=== PATIENT | male | born 1975 | race Caucasian/White ===

== ENCOUNTER 2023-10-01 09:50 | Observation (INO) | payer OTHER, SELFPAY ==
[2023-10-01] VITALS (14 sets, daily range): BP systolic 151–170; BP diastolic 90–114; PULSE 96–120; RESP 13–22; TEMP 37–37.2; O2SAT 92–98
--- NOTE | ~2023-10-01 | CT_ITS ---
CT of the Abdomen and Pelvis: Indication: Abdominal pain Technique: 2.5 mm axial scans were obtained through the abdomen and pelvis following intravenous adm inistration of 100 cc of Omnipaque 350. Dose reduction technique was used on this scan by utilizing a utomated exposure control and iterative reconstruction technique. The dose-length product (DLP) was 1 767.22 mGy-cm. Findings: Scans through the lung bases are unremarkable. There is diffuse hepatic steatosis. The spleen, pancreas, gallbladder, left adrenal gland, and kidney s are within normal limits. There is a 2 cm indeterminate right adrenal nodule. There are atheroscler otic calcifications of the aorta. No lymphadenopathy. Appendix is dilated to 9 mm small amount of periappendiceal/right lower quadrant fluid/inflammatory c hange. No abscess or free air evident. Images through the pelvis were performed. Urinary bladder unremarkable. No pelvic mass seen. No ascit es. Bilateral L5 pars interarticularis defects are present. Impression: Findings consistent with early/mild acute appendicitis, as above. No abscess or free air. 2 cm indeterminate right adrenal nodule. Follow-up nonemergent MR should be considered to attempt to confirm benign adenoma. Diffuse hepatic stenosis. Reviewed, dictated and finalized at [facility]. Impression: Findings consistent with early/mild acute appendicitis, as above. No abscess or free air. 2 cm indeterminate right adrenal nodule. Follow-up nonemergent MR should be con sidered to attempt to confirm benign adenoma. Diffuse hepatic stenosis.
[2023-10-01 10:09] LABS: Basophils Absolute Auto 0.1 K/mm3 (0.0-0.1); Basophils Percent Auto 0.5 % (0.2-1.2); Eosinophils Percent Auto 0.4 % (0-4.4); Hematocrit 44.9 % (42.0-52.0); Immature Granulocyte Absolute 0.07 K/mm3 (0.00-0.031); Immature Granulocyte Percent A 0.7 % (0-0.5); Lymphocytes Absolute Auto 1.65 K/mm3 (0.9-3.2); Lymphocytes Percent Auto 15.9 % (18.3-44.2); Mean Corpuscular HGB Conc 33.4 g/dl (32-36); Mean Corpuscular Hemoglobin 30.7 pg (26-34); Mean Platelet Volume 8.6 fl (7.4-10.4); Monocytes Absolute Auto 0.9 K/mm3 (0.1-0.6); Neutrophils Absolute Auto 7.6 K/mm3 (1.3-6.7); Neutrophils Percent Auto 73.5 % (45.5-73.1); Platelet Count Result 318 k/mm3 (150-375); Red Blood Count 4.88 M/mm3 (4.6-6.20); Red Cell Distribution Width 14.6 % (11.5-14.5); White Blood Count 10.4 K/mm3 (4.5-10.0)
[2023-10-01 10:24] LABS: Alanine Aminotransferase 32 U/L (6-50); Albumin Level 4.8 g/dL (3.5-5.1); Alkaline Phosphatase 91 U/L (38-126); Anion Gap 8 mmol/L (4-12); Aspartate Amino Transferase 45 U/L (17-59); Blood Urea Nitrogen 9 mg/dL (9-20); Calcium 10.1 mg/dL (8.4-10.2); Carbon Dioxide 28 mmol/L (22-30); Chloride 97 mmol/L (98-107); Estimated CRCL calculation 139 ml/min; Estimated Glomerular Filt Rate > 60; Glucose 128 mg/dL (65-110); Lipase 74 U/L (23-300); Potassium 3.7 mmol/L (3.4-5.0); Sodium 133 mmol/L (137-145)
[2023-10-01] MEDS: SODIUM CHLORIDE 0.9% IV 1,000 ML 999 ML IV CONT (10:41)
[2023-10-01] MEDS: ONDANSETRON INJ 4 MG/2 ML VIAL IV PUSH (10:42)
[2023-10-01] MEDS: MORPHINE SULFATE (*CRX) 4 MG/ML INJ IV PUSH (10:42)
[2023-10-01 11:46] LABS: Appearance Urine Clear (Clear); Bacteria Urine None Seen /hpf; Bilirubin Urine Negative (Negative); Blood Urine Negative (Negative); Color Urine Yellow (Yellow); Glucose Urine UA Negative (Negative); Ketones Urine Trace mg/dL (Negative); Leukocyte Esterase Ur Negative LEU/UL (Negative); Nitrate Urine Negative (Negative); Non Pathogenic Casts 0-2; Protein Urine Trace mg/dL (Negative); RBC Urine 0-2 /hpf (0-2); Squamous Epithelial Cell Urine None Seen /hpf (Few); Urobilinogen Urine 0.2 mg/dL (<2.0); WBC Urine 0-5 /hpf (0-3); pH Urine 6.5 (5.0-9.0)
[2023-10-01 11:55] LABS: Specific Grav Ur 1.068 (1.001-1.035)
[2023-10-01] MEDS: HYDROmorphone HCL INJ (*CRX) 1 MG/ML SYR IV PUSH (11:55)
[2023-10-01 11:56] LABS: Add Urine Microscopic? YES
[2023-10-01] MEDS: metroNIDAZOLE 500 MG/ISO 100ML 500 MG/100 ML BAG 100 MG IVPB ×2 (12:23→21:09)
--- NOTE | 2023-10-01 12:45 | ED.GENADULT ---
HPI - General Adult General Chief complaint: Abdominal Pain Stated complaint: lower abd pain Time Seen by Provider: 10/01/23 09:56 History of Present Illness HPI narrative: Patient is a 48-year-old male who presents ER with right lower quadrant abdominal pain. Ongoing for 24 hours. Worse with any physical movement. Has had the feeling that he needs to have bowel movement but cannot. No fevers or chills or sweats. No vomiting. He does still have an appendix. No urinary frequency urgency or dysuria. Related Data Home Medications Medication Instructions Recorded Confirmed levothyroxine 88 mcg tablet mcg 10/01/23 losartan 100 tablet 10/01/23 10/01/23 mg-hydrochlorothiazide 25 mg tablet Allergies Allergy/AdvReac Type Severity Reaction Status Date / Time No Known Allergies Allergy Verified 10/01/23 10:00 Review of Systems Review of Systems: All systems reviewed & are unremarkable except as noted in HPI and below Constitutional: Constitutional: Reports no additional constitutional complaints ENT: Reports system reviewed and no additional complaints, except as documented Cardiovascular: Cardiovascular: Reports no additional cardiovascular complaints Respiratory: Respiratory: Reports no additional respiratory complaints Gastrointestinal: Gastrointestinal: Reports abdominal pain, Denies diarrhea, Denies nausea and Denies vomiting PMFSH Past Medical History Medical History Hypertension Hypothyroidism Family History Family History Father Carcinoma of colon Exam Narrative: GENERAL: Well-appearing, obese, and in no acute distress. HEAD: Normocephalic, atraumatic. ENT: Mucous membranes moist. NECK: Supple. CHEST: Clear to auscultation. No respiratory distress. HEART: Regular rate and rhythm. Normal peripheral pulses. ABDOMEN: Soft, Tender palpation right lower quadrant with guarding, nondistended. EXTREMITIES: Normal range of motion. No edema. SKIN: Warm, dry, no rash. NEURO: Alert and oriented x3. PSYCH: Normal mood and affect. Course Course Emergency Course: patient accepted by General surgery to go to the OR. Patient has been started on IV antibiotics. Vital Signs Vital signs: Vital Signs Temperature 98.8 F 10/01/23 09:58 Pulse Rate 117 H 10/01/23 09:58 Respiratory Rate 16 10/01/23 09:58 Blood Pressure 168/101 H 10/01/23 09:58 Pulse Oximetry 98 10/01/23 09:58 Oxygen Delivery Room Air 10/01/23 09:58 Temperature 98.6 F 10/01/23 13:45 Pulse Rate 102 H 10/01/23 18:23 Respiratory Rate 14 10/01/23 13:45 Blood Pressure 156/90 H 10/01/23 13:45 Pulse Oximetry 95 10/01/23 18:23 Oxygen Delivery Nasal Cannula 10/01/23 18:23 Oxygen Flow Rate 2 10/01/23 18:23 Medical Decision Making Vital Signs Vital Signs: Vital Signs Temperature 98.8 F 10/01/23 09:58 Pulse Rate 117 H 10/01/23 09:58 Respiratory Rate 16 10/01/23 09:58 Blood Pressure 168/101 H 10/01/23 09:58 Pulse Oximetry 98 10/01/23 09:58 Oxygen Delivery Room Air 10/01/23 09:58 Temperature 98.6 F 10/01/23 13:45 Pulse Rate 102 H 10/01/23 18:23 Respiratory Rate 14 10/01/23 13:45 Blood Pressure 156/90 H 10/01/23 13:45 Pulse Oximetry 95 10/01/23 18:23 Oxygen Delivery Nasal Cannula 10/01/23 18:23 Oxygen Flow Rate 2 10/01/23 18:23 Lab Data 10/01/23 10:02 10/01/23 10:02 Labs: Lab Results 10/01/23 10/01/23 Range/Units 10:02 11:37 WBC 10.4 H (4.5-10.0) K/mm3 RBC 4.88 (4.6-6.20) M/mm3 Hgb 15.0 (14.0-18.0) g/dL Hct 44.9 (42.0-52.0) % MCV 92.0 (80-100) fl MCH 30.7 (26-34) pg MCHC 33.4 (32-36) g/dl RDW 14.6 H (11.5-14.5) % Plt Count 318 (150-375) k/mm3 MPV 8.6 (7.4-10.4) fl Immature Gran % (Auto) 0.7 H (0-0.5) % Neut % (Auto) 73.5 H (45.5-73.
--- NOTE | 2023-10-01 13:16 | PM.HPGS ---
History of Present Illness History of Present Illness Consent: Risks, benefits, and alternatives have been discussed and questions answered. Patient agrees to proceed with procedure. Chief complaint: lower abd pain Narrative: Sheldon Fine is a 48 year old male who presented to the ER with RLQ abdominal pain x 12 hours. He first noticed pain around 11 pm last night. He developed nausea and vomiting. His pain progressed through the night and he came into the ER for evaluation. Workup shows mild leukocytosis and CT evidence of possible early/mild acute appendicitis. No perforation or abscess. Our service was consulted by ED provider and he is now seen in the ER. No history of abdominal surgery. No previous colonoscopy. Review of Systems Review of Systems: All systems reviewed & are unremarkable except as noted in HPI and below PMFSH Past Medical History Medical History Hypertension Hypothyroidism Family History Family History Father Carcinoma of colon Meds Home Medications and Allergies Home Medications Medication Instructions Recorded Confirmed Type levothyroxine 88 mcg tablet mcg 10/01/23 History losartan 100 tablet 10/01/23 10/01/23 History mg-hydrochlorothiazide 25 mg tablet Allergies Allergy/AdvReac Type Severity Reaction Status Date / Time No Known Allergies Allergy Verified 10/01/23 10:00 Vital Signs Vital Signs - 24 hr 10/01/23 09:58 10/01/23 12:07 Temperature 98.8 F Pulse Rate 117 H 96 Respiratory Rate 16 16 Blood Pressure 168/101 H 151/94 H Pulse Oximetry 98 95 Oxygen Delivery Room Air Exam Const: General: comfortable and no acute distress Nutritional Appearance: obese Orientation/consciousness: patient oriented x3 HENMT: Head: normocephalic and atraumatic Ears: hearing grossly normal bilaterally Eyes: General: appearance normal, both eyes and all related structures Pupils: Equal, round and reactive pupils present Neck: Neck: normal visual inspection and full ROM Resp: Effort & Inspection: no respiratory distress Auscultation: clear to auscultation bilaterally Cardio: Rate: regular rate Rhythm: regular rhythm Heart sounds: S1 normal heart sound present and S2 normal heart sound present Peripheral pulses: Peripheral pulses 2+ throughout GI: Inspection: non-distended and obesity GI Palp: Yes Soft to palpation, Yes Tenderness to palpation present (GI) (mild diffuse TTP but focal tenderness in RLQ), Yes Guarding due to palpation present (GI) (RLQ), Yes No hepatosplenomegaly present and Yes Hernia present umbilical (tender but reducible) Percussion: Yes normal to percussion Auscultation: normal bowel sounds Skin: General skin exam: normal color Neuro: General: moves all extremities and no focal motor deficits Speech: normal speech Motor exam (neuro): 5/5 motor strength present throughout Extrem: General: normal to inspection and no edema Psych: Mental Status: mental status grossly normal Attitude: cooperative Insight: Good insight present (Psych) Judgement: Good judgement present (Psych) Results Results Additional studies: ITS Impressions Abdomen/Pelvis CT 10/01/23 11:14 Impression: Findings consistent with early/mild acute appendicitis, as above. No abscess or free air. 2 cm indeterminate right adrenal nodule. Follow-up nonemergent MR should be considered to attempt to confirm benign adenoma. Diffuse hepatic stenosis. Assessment and Plan Assessment and plan (1) Acute appendicitis: Code(s): K35.80 - Unspecified acute appendicitis Status: Acute Assessment and Plan: CT scan reviewed and discussed with the patient. There is evidence of acute appendicitis. No perforation or abscess evident on CT. Dr. Clemons discussed treatment options with the patient and recommended proceeding with laparoscopic robbie
[2023-10-01] MEDS: LACTATED RINGERS 1,000 ML 30 ML IV CONT ×2 (13:30→21:23)
[2023-10-01] MEDS: HYDROmorphone HCL INJ (*CRX) 1 MG/ML SYR 0.25 MG IV PUSH ×6 (13:40→19:04)
--- NOTE | 2023-10-01 14:54 | SUR.PREOP ---
1454- Patient and Alina aware procedure start time will be delayed. Patient reporting improvement with pain after IV pain medication dilaudid. Denying needs at this time.
--- NOTE | 2023-10-01 18:03 | WPDHPUPDATE1 ---
History and Physical Update Update Date/Time: 10/01/23 18:03 History and Physical has been reviewed, including an updated exam of the patient. There are NO changes in the patient's condition. Risks, benefits, and alternatives have been discussed and questions answered. Patient agrees to proceed with procedure.
--- NOTE | 2023-10-01 19:34 | WPDANESEPPF ---
Anes - Initial Pre Proc Eval Procedure: Operation Date: 10/01/23 15:00 Proposed Procedures p Laparoscopic Appendectomy - Tamela See MD Date/Time: 10/01/23 19:34 Surgeon: Tamela See MD Pre Op Diagnosis: lower abd pain Patient Data Age: 48 Gender: M Height: 1.83 m Weight: 135.5 kg Last Vital Signs Temp 37.0 C 10/01/23 13:45 Pulse 100 10/01/23 19:04 Resp 14 10/01/23 13:45 BP 156/90 H 10/01/23 13:45 Pulse Ox 97 10/01/23 19:04 O2 Del Method Nasal Cannula 10/01/23 19:04 O2 Flow Rate 2 10/01/23 19:04 Allergies Allergy/AdvReac Type Severity Reaction Status Date / Time No Known Allergies Allergy Verified 10/01/23 10:00 Home Medications Medication Instructions Recorded Confirmed Type levothyroxine 88 mcg tablet mcg 10/01/23 History losartan 100 tablet 10/01/23 10/01/23 History mg-hydrochlorothiazide 25 mg tablet Laboratory Tests 10/01/23 10/01/23 10:02 11:37 WBC 10.4 H K/mm3 (4.5-10.0) RBC 4.88 M/mm3 (4.6-6.20) Hgb 15.0 g/dL (14.0-18.0) Hct 44.9 % (42.0-52.0) MCV 92.0 fl (80-100) MCH 30.7 pg (26-34) MCHC 33.4 g/dl (32-36) RDW 14.6 H % (11.5-14.5) Plt Count 318 k/mm3 (150-375) MPV 8.6 fl (7.4-10.4) Immature Gran % (Auto) 0.7 H % (0-0.5) Neut % (Auto) 73.5 H % (45.5-73.1) Lymph % (Auto) 15.9 L % (18.3-44.2) [place] % (Auto) 9.0 H % (2.6-8.5) Eos % (Auto) 0.4 % (0-4.4) Baso % (Auto) 0.5 % (0.2-1.2) Lymph # (Auto) 1.65 K/mm3 (0.9-3.2) [place] # (Auto) 0.9 H K/mm3 (0.1-0.6) Eos # (Auto) 0.0 K/mm3 (0-0.3) Baso # (Auto) 0.1 K/mm3 (0.0-0.1) Abs Immat Gran (auto) 0.07 H K/mm3 (0.00-0.031) Absolute Neuts (auto) 7.6 H K/mm3 (1.3-6.7) Absolute Nucleated RBC 0.000 K/mm3 (0.0-0.012) Nucleated RBC % 0.0 % (0.0-0.2) Sodium 133 L mmol/L (137-145) Potassium 3.7 mmol/L (3.4-5.0) Chloride 97 L mmol/L (98-107) Carbon Dioxide 28 mmol/L (22-30) Anion Gap 8 mmol/L (4-12) BUN 9 mg/dL (9-20) Creatinine 0.80 mg/dL (0.7-1.3) Estim Creat Clear Calc 139 ml/min Estimated GFR > 60 (59 - ) Glucose 128 H mg/dL (65-110) Calcium 10.1 mg/dL (8.4-10.2) Total Bilirubin 1.0 mg/dL (0.2-1.3) AST 45 U/L (17-59) ALT 32 U/L (6-50) Alkaline Phosphatase 91 U/L (38-126) Total Protein 8.0 g/dL (6.3-8.2) Albumin 4.8 g/dL (3.5-5.1) Lipase 74 U/L (23-300) Urine Color Yellow (Yellow) Urine Appearance Clear (Clear) Urine pH 6.5 (5.0-9.0) Ur Specific [place] 1.068 H (1.001-1.035) Urine Protein Trace mg/dL (Negative) Urine Glucose (UA) Negative mg/dL (Negative) Urine Ketones Trace H mg/dL (Negative) Ur Blood (Man) Negative (Negative) Urine Nitrate Negative (Negative) Urine Bilirubin Negative (Negative) Urine Urobilinogen 0.2 mg/dL (<2.0) Leukocyte Esterase Rfl Negative JACKIE/UL (Negative) Urine RBC 0-2 /hpf (0-2) Urine WBC 0-5 /hpf (0-3) Ur Squamous Epith Cells None seen /hpf (Few) Urine Bacteria None seen /hpf Urine Casts 0-2 Patient hx anesthesia problems: none Family hx anesthesia problems: none Results Review: All pre-operative results and documents have been reviewed as part of the pre-operative evaluation. PMFSH Past Medical History Medical History Hypertension Hypothyroidism Family History Family History Father Carcinoma of colon Anes - Eval Final PreProcedure Day of Procedure 10/01/23 19:34 Patient weight: morbidly obese Heart: regular rate
[2023-10-01] MEDS: LIDO 1%/EPINEPHRINE 1:100,000 20 ML VIAL 30 ML INFILTRATE (20:21)
[2023-10-01] MEDS: BUPivacaine HCL 0.5% 10 ML AMP 30 ML INFILTRATE (20:22)
--- NOTE | 2023-10-01 21:15 | W.PM.PROC2 ---
Procedure Note - Detailed Date of Procedure 10/01/23 Pre-op Diagnosis Acute appendicitis Post-op Diagnosis Same Procedure Performed Laparoscopic appendectomy Surgeon Andrea Yang MD Anesthesia General Indications Patient is a 48-year-old gentleman presented to the emergency room with complaints of lower abdominal pain. He had a leukocytosis and a CT scan abdomen pelvis showed acute appendicitis. He presents now for emergent laparoscopic appendectomy. Findings The appendix was acutely inflamed throughout its distal 2/3. No perforation of her presumed abscess was seen. It was quite a bit inflammation of the surrounding peritoneum in the right lower quadrant. Description of Procedure After informed consent was obtained patient brought to the operating room was placed supine position and general endotracheal anesthesia was administered. A Hall catheter was placed decompress the bladder and the abdomen was then prepped and draped usual sterile fashion. A time-out was then performed correctly identifying the patient as well as procedure to be performed. I then entered the abdomen in left upper quadrant utilizing a 5mm Optiview port. Once inside the abdomen I could see there is no adhesions around the umbilicus I placed a 12mm trocar port in the periumbilical position under direct visualization. I then placed a 5mm suprapubic trocar port and a 5mm right lower quadrant trocar port all under direct visualization. With the patient in the head-down Trendelenburg position and looked is the patient's left the bowel fell away from the right lower quadrant the abdomen I could see a acutely inflamed appendix in the right lower quadrant just inferior to the cecum. With blunt dissection with the tip of the irrigation device I was able to separate the appendix from the surrounding terminal ileum and peritoneum. I was then able to hold the appendix at the tip and evaluate and see that the proximal 1/3 the appendix was normal there was no inflammation of the base of the appendix. There is no perforation or periappendiceal abscess. I then made a defect through the mesentery at the base of the appendix with a [place] dissector. I then used a blue load to the 45mm Endo-MICHELLE stapler to divide the appendix flush with the cecum. A vascular reload to the Endo-MICHELLE stapler 45mm stapler was then used to divide the mesoappendix. The appendix was then placed into an Endo-Catch bag and brought out through the periumbilical trocar port site. It was passed off table sent to pathology for examination. I then irrigated out the right lower quadrant the abdomen the pelvis with copious amounts sterile saline solution. I felt there was no inflammation area that I wanted to leave a drain so a 15 [place] round Jose drain was placed into the abdomen through the suprapubic trocar port site. It was secured to the skin with a 3-0 nylon suture. The drain was then placed in the right lower quadrant the abdomen with the traversing the the base of the appendix staple line. I then irrigated the pelvis and right lower quadrant with about 1L of irrigation. I then proceeded to remove all the trocar ports under visualization all port sites appeared hemostatic. I then allowed the abdomen decompressed. The 12mm periumbilical trocar port fascial defect was then closed utilizing 0 Vicryl sutures to approximate the edges of the fascia. The skin edges at the port sites were then approximated utilizing a running subcuticular 4 Monocryl suture. The drain was placed to after a grenade bulb suction and a drain dressing was placed. Skin glue was applied all the port sites. The patient tolerated the procedure well no complications. All sponges, needles, and instrument counts were correct at the end procedure. EBL was _30__cc. The patient was awakened and taken to recovery in stable and satisfactory condition. Implants None Estimated Blood Loss 30 Drains Yes (15 [place] round Jose drain right lower quadrant)
[2023-10-01] MEDS: ERTAPENEM 1 GM/NS 50 ML 1 GM/50 ML BAG IVPB (21:42)
--- NOTE | 2023-10-01 22:23 | ADMGEN ---
This patient, Sheldon Fine, was admitted to Medical Room 261-01 @1975. Patient/family oriented to hospital policies and general routines including ID bracelet, bed and alarms, visiting hours, pain management, procedures, bathroom and other care routines, personal items, smoking policy, room service/diet, and visiting hours. Information on how to activate the Rapid Response Team has been discussed. Patient/Family are encouraged to report perceived risks to care and to ask questions if they do not understand what they are told or what they should do.
[2023-10-01] MEDS: LACTATED RINGERS 1,000 ML 125 ML IV CONT (23:05)
[2023-10-01] MEDS: oxyCODONE HCL (*CRX) 5 MG TAB IR PO (23:29)
[2023-10-02] VITALS (8 sets, daily range): BP systolic 153–168; BP diastolic 64–109; PULSE 91–106; RESP 16–24; TEMP 36.4–37.6; O2SAT 94–100
[2023-10-02] MEDS: oxyCODONE HCL (*CRX) 5 MG TAB IR PO ×3 (03:51→12:34)
[2023-10-02 05:34] LABS: Basophils Percent Auto 0.2 % (0.2-1.2); Hematocrit 38.8 % (42.0-52.0); Hemoglobin 12.8 g/dL (14.0-18.0); Immature Granulocyte Absolute 0.11 K/mm3 (0.00-0.031); Immature Granulocyte Percent A 0.6 % (0-0.5); Lymphocytes Absolute Auto 0.55 K/mm3 (0.9-3.2); Lymphocytes Percent Auto 3.1 % (18.3-44.2); Mean Corpuscular Hemoglobin 31.3 pg (26-34); Mean Corpuscular Volume 94.9 fl (80-100); Monocytes Absolute Auto 0.6 K/mm3 (0.1-0.6); Monocytes Percent Auto 3.4 % (2.6-8.5); Neutrophils Absolute Auto 16.5 K/mm3 (1.3-6.7); Neutrophils Percent Auto 92.7 % (45.5-73.1); Platelet Count Result 261 k/mm3 (150-375); Red Blood Count 4.09 M/mm3 (4.6-6.20); Red Cell Distribution Width 14.7 % (11.5-14.5); White Blood Count 17.8 K/mm3 (4.5-10.0)
[2023-10-02 05:56] LABS: Anion Gap 3 mmol/L (4-12); Blood Urea Nitrogen 9 mg/dL (9-20); Calcium 9.4 mg/dL (8.4-10.2); Carbon Dioxide 29 mmol/L (22-30); Chloride 101 mmol/L (98-107); Estimated CRCL calculation 139 ml/min; Estimated Glomerular Filt Rate > 60; Glucose 146 mg/dL (65-110); Sodium 133 mmol/L (137-145)
[2023-10-02 06:01] LABS: Hypochromasia 1+; Platelet Estimate Adequate (Adequate); Schistocytes None Seen; Stomatocytes 1+
[2023-10-02] MEDS: metroNIDAZOLE 500 MG/ISO 100ML 500 MG/100 ML BAG 100 MG IVPB (06:02)
[2023-10-02] MEDS: PANTOPRAZOLE 40 MG TABLET PO (08:10)
[2023-10-02] MEDS: LACTATED RINGERS 1,000 ML 125 ML IV CONT (08:11)
--- NOTE | 2023-10-02 09:15 | WPDPN ---
Progress Note: A&P Assessment and Plan (1) Acute appendicitis: Code(s): K35.80 - Unspecified acute appendicitis Status: Acute Assessment and Plan: Postop day 1 after laparoscopic appendectomy. Seems to be doing pretty well today. White blood count is elevated but is likely reactive to surgery. Would like to keep him on Invanz for another 24hours of IV antibiotics. We will go ahead and stop the Flagyl. Hopefully his white blood cell count trend down tomorrow and he can go home on oral antibiotics for another 7 to 10 days. Leave the drain in for today and likely remove tomorrow if he can go home tomorrow. Diet to be advanced later today. Continue to ambulate. Will at some Lovenox for DVT prophylaxis. Subjective Date/time seen: 10/02/23 09:15 Interval history: Patient is postoperative day 1 after laparoscopic appendectomy yesterday. He states that his pain is much better but is still having some mild soreness around his port sites. He is tolerating full liquid diet this morning on difficulty. He is not on any oxygen. His white blood cell count did increase to 17,800 after his surgery. This is likely reactive to surgery. No fever overnight. Remains on Invanz and Flagyl for IV antibiotics. He is able to ambulate without difficulty urinate without difficulty. Exam GI: Other: Abdomen is obese but soft. Site incisions appear to be healing okay. Suprapubic drain site intact with dry dressing. Output from the drain is serosanguineous and minimally cloudy. No feculent material. Mild tenderness around port sites but no generalized peritoneal signs. No guarding. Objective Data Vital Signs Vital Signs: Vital Signs - 24 hr 10/01/23 09:58 10/01/23 12:07 10/01/23 13:45 Temperature 37.1 C 37.0 C Pulse Rate 117 H 96 104 H Respiratory Rate 16 16 14 Blood Pressure 168/101 H 151/94 H 156/90 H Pulse Oximetry 98 95 94 Oxygen Delivery Room Air Room Air Oxygen Flow Rate 10/01/23 17:33 10/01/23 17:46 10/01/23 18:23 Temperature Pulse Rate 102 H 102 H Respiratory Rate Blood Pressure Pulse Oximetry 96 95 95 Oxygen Delivery Nasal Cannula Nasal Cannula Nasal Cannula Oxygen Flow Rate 2 2 2 10/01/23 19:04 10/01/23 21:09 10/01/23 21:20 Temperature Pulse Rate 100 120 H 111 H Respiratory Rate 22 H 13 Blood Pressure 169/105 H 170/114 H Pulse Oximetry 97 97 93 Oxygen Delivery Nasal Cannula Simple Face Mask Nasal Cannula Oxygen Flow Rate 2 8 3 10/01/23 21:35 10/01/23 21:50 10/01/23 22:03 Temperature Pulse Rate 116 H 113 H 111 H Respiratory Rate 14 22 H 19 Blood Pressure 156/104 H 152/106 H 154/104 H Pulse Oximetry 92 94 92 Oxygen Delivery Nasal Cannula Nasal Cannula Nasal Cannula Oxygen Flow Rate 4 2 2 10/01/23 22:20 10/02/23 00:03 10/01/23 23:00 Temperature 37.2 C 37.6 C Pulse Rate 116 H 101 H Respiratory Rate 16 16 Blood Pressure 152/105 H 153/103 H Pulse Oximetry 94 97 94 Oxygen Delivery Nasal Cannula Oxygen Flow Rate 2 10/02/23 01:04 10/02/23 04:08 10/02/23 04:10 Temperature 37.2 C 36.8 C Pulse Rate 106 H 102 H Respiratory Rate 18 16 Blood Pressure 168/109 H 162/105 H Pulse Oximetry 98 97 97 Oxygen Delivery Nasal Cannula Oxygen Flow Rate 1 10/02/23 08:26 Temperature Pulse Rate Respiratory Rate Blood Pressure Pulse Oximetry 94 Oxygen Delivery Room Air Oxygen Flow Rate Intake/Output Intake/Output: Intake & Output 09/29/23 09/30/23 10/01/23 10/02/23 23:59 23:59 23:59 23:59 Intake Total 3000 1500 Output Total 90 50 Balance 2910 1450 Meds/Results Medications: Active Medications Generic Name Dose Route Start Last Admin Trade Name Freq PRN Reason Stop Dose Admin Acetaminophen 1,000 mg 10/01/23 22:05 Acetaminophen 500 Mg Tablet PO Q6H PRN Mild Pain (1-3) or Fever Hydrocodone Bitart/Acetaminophen 1 tab 10/01/23 22:05 Hydrocodone/Acetaminophen (*Crx) 5-325 Mg Tablet PO
[2023-10-02] MEDS: ENOXAPARIN 40 MG/0.4 ML SYRINGE SUB-Q (09:50)
--- NOTE | 2023-10-02 12:06 | P.PNAN_ITS ---
Anes - Prog Note Post-Op Date/Time: 10/02/23 12:06 Cardiovascular status: normal Respiratory status: normal Airway patency: baseline Mental status: baseline Post-Op hydration status: normal Vital Signs: Last Vital Signs Temp 36.8 C 10/02/23 04:08 Pulse 102 H 10/02/23 04:08 Resp 16 10/02/23 04:08 BP 162/105 H 10/02/23 04:08 Pulse Ox 94 10/02/23 08:26 O2 Del Method Room Air 10/02/23 08:26 O2 Flow Rate 1 10/02/23 04:10 Pain Score (VAS): 0 I/O: Intake & Output 10/01/23 10/02/23 10/02/23 23:59 07:59 15:59 Intake Total 1850 1500 570 Output Total 90 50 Balance 1760 1450 570 Laboratory Tests 10/02/23 04:45 10/02/23 04:45 10/02/23 04:45 WBC 17.8 H RBC 4.09 L Hgb 12.8 L Hct 38.8 L MCV 94.9 MCH 31.3 MCHC 33.0 RDW 14.7 H Plt Count 261 MPV 9.0 Immature Gran % (Auto) 0.6 H Neut % (Auto) 92.7 H Lymph % (Auto) 3.1 L [place] % (Auto) 3.4 Eos % (Auto) 0.0 Baso % (Auto) 0.2 Lymph # (Auto) 0.55 L [place] # (Auto) 0.6 Eos # (Auto) 0.0 Baso # (Auto) 0.0 Abs Immat Gran (auto) 0.11 H Absolute Neuts (auto) 16.5 H Absolute Nucleated RBC 0.000 Nucleated RBC % 0.0 Platelet Estimate Adequate Hypochromasia 1+ Stomatocytes 1+ Schistocytes None seen Sodium 133 L Potassium 4.0 Chloride 101 Carbon Dioxide 29 Anion Gap 3 L BUN 9 Creatinine 0.80 Estim Creat Clear Calc 139 Estimated GFR > 60 Glucose 146 H Calcium 9.4 Post-procedural complaints: none Patient Feedback: Patient satisfied with anesthetic care.
[2023-10-02] MEDS: LOSARTAN POTASSIUM 100 MG TABLET PO (12:34)
[2023-10-02] MEDS: hydroCHLOROthiazide 25 MG TABLET PO (12:34)
[2023-10-02] MEDS: LACTATED RINGERS 1,000 ML 75 ML IV CONT (20:34)
[2023-10-02] MEDS: ERTAPENEM 1 GM/NS 50 ML 1 GM/50 ML BAG IVPB (20:35)
[2023-10-03] VITALS: BP 125/74; PULSE 89; RESP 16; TEMP 36.5; O2SAT 96
[2023-10-03 04:00] VITALS: BP 148/90; PULSE 85; RESP 16; TEMP 36.6; O2SAT 97
[2023-10-03 05:21] LABS: Basophils Percent Auto 0.4 % (0.2-1.2); Eosinophils Absolute Auto 0.2 K/mm3 (0-0.3); Eosinophils Percent Auto 1.8 % (0-4.4); Hematocrit 37.5 % (42.0-52.0); Hemoglobin 12.1 g/dL (14.0-18.0); Immature Granulocyte Absolute 0.08 K/mm3 (0.00-0.031); Immature Granulocyte Percent A 0.8 % (0-0.5); Lymphocytes Absolute Auto 1.52 K/mm3 (0.9-3.2); Lymphocytes Percent Auto 14.9 % (18.3-44.2); Mean Corpuscular HGB Conc 32.3 g/dl (32-36); Mean Corpuscular Hemoglobin 30.8 pg (26-34); Mean Corpuscular Volume 95.4 fl (80-100); Mean Platelet Volume 9.1 fl (7.4-10.4); Monocytes Absolute Auto 0.9 K/mm3 (0.1-0.6); Monocytes Percent Auto 8.6 % (2.6-8.5); Neutrophils Absolute Auto 7.5 K/mm3 (1.3-6.7); Neutrophils Percent Auto 73.5 % (45.5-73.1); Platelet Count Result 241 k/mm3 (150-375); Red Blood Count 3.93 M/mm3 (4.6-6.20); Red Cell Distribution Width 14.6 % (11.5-14.5); White Blood Count 10.2 K/mm3 (4.5-10.0)
[2023-10-03 07:50] VITALS: BP 147/100; PULSE 86; RESP 14; TEMP 36.6; O2SAT 96
[2023-10-03] MEDS: hydroCHLOROthiazide 25 MG TABLET PO (08:05)
[2023-10-03] MEDS: LOSARTAN POTASSIUM 100 MG TABLET PO (08:05)
[2023-10-03] MEDS: ENOXAPARIN 40 MG/0.4 ML SYRINGE SUB-Q (08:05)
[2023-10-03] MEDS: PANTOPRAZOLE 40 MG TABLET PO (08:05)
--- NOTE | 2023-10-03 11:57 | PM.DS ---
DS: Admitting Diagnosis Discharge Date 10/03/23 Admitting Diagnosis Acute appendicitis DS: Discharge Diagnosis Discharge Diagnosis (1) Acute appendicitis: Code(s): K35.80 - Unspecified acute appendicitis Status: Acute (2) Hepatic steatosis: Code(s): K76.0 - Fatty (change of) liver, not elsewhere classified Status: Acute Assessment and Plan: Noted on imaging. Recommend dietary modifications. F/u with PCP. (3) Adrenal mass: Code(s): E27.8 - Other specified disorders of adrenal gland Status: Acute Assessment and Plan: Found on CT. F/u with PCP for outpatient workup (4) Hypertension: Code(s): I10 - Essential (primary) hypertension Status: Acute Assessment and Plan: BP elevated but stable on current home medications. Rec to take BP at home and f/u with PCP in 1-2 weeks with record of BPs. DS: Summary Hospital Course Reason for hospitalization: This is a 48 year old male who presented to the ER with RLQ abdominal pain x 12 hours. He had associated nausea and vomiting. Workup in ER showed CT evidence of possible early/mild acute appendicitis. No perforation or abscess. He was admitted for surgical evaluation and treatment in this setting. Hospital Course: He was started on broad-spectrum IV antibiotics, IV fluids, and made NPO. After evaluation, decision was made to proceed with surgery. He underwent Laparoscopic appendectomy by Dr. Yang on 10/01/23. Findings of an acutely inflamed appendix with a significant amount of RLQ inflammation, but no perforation or abscess during surgery. Antibiotics were continued post-operatively and he had a HORTENSIA drain placed during surgery that was monitored. WBC count jumped up to 17,800 on postop day 1 from 10,400 prior to surgery. This could be related to the infectious process, reaction to surgery, or a combination. HORTENSIA drain was serous and scant output. It was removed prior to discharge. His diet was advanced as tolerated to solid foods and he was tolerating this by postop day 2. Incisional soreness was well controlled and he was tolerating activity. He was stable for discharge on postop day [address] Yang recommended another 7 days of ciprofloxacin. Status at Discharge Functional status at discharge: independent ambulation Overall status at discharge: patient is progressing back to baseline Time Spent with Patient Time attestation: Total time spent providing and/or coordinating discharge services: Exam Const: General: comfortable and no acute distress Resp: Effort & Inspection: normal respiratory effort Auscultation: clear to auscultation bilaterally Cardio: Rate: regular rate Rhythm: regular rhythm GI: Inspection: non-distended GI Palp: Yes Soft to palpation, Yes Tenderness to palpation present (GI) (incisional) and No Guarding due to palpation present (GI) Auscultation: normal bowel sounds Other: incisions dry and intact with moderate area of ecchymosis around umbilical incision and small area of ecchymosis around RLQ incision. No drainage. HORTENSIA drain with scant serous drainage. Neuro: General: moves all extremities and no focal motor deficits Extrem: General: no calf tenderness and no edema Psych: Mental Status: mental status grossly normal Insight: Good insight present (Psych) DS: Data Data Completed and Pending Pending studies at discharge: Pending at discharge 10/01/23 20:32 Surgical [PTH] Routine Labs on day of discharge: Labs from last 24 hours 10/03/23 04:44 WBC 10.2 H RBC 3.93 L Hgb 12.1 L Hct 37.5 L MCV 95.4 MCH 30.8 MCHC 32.3 RDW 14.6 H Plt Count 241 MPV 9.1 Immature Gran % (Auto) 0.8 H Neut % (Auto) 73.5 H Lymph % (Auto) 14.9 L [place] % (Auto) 8.6 H Eos % (Auto) 1.8 Baso % (Auto) 0.4 Lymph # (Auto) 1.52 [place] # (Auto) 0.9 H Eos # (Auto) 0.2 Baso # (Auto) 0.0 Abs Immat Gran (auto) 0.08 H Absolute Neuts (auto) 7.5 H Absolute Nucleated RBC 0.000 Nucleat
[2023-10-03 12:27] VITALS: BP 152/96; PULSE 89; RESP 16; TEMP 36.8; O2SAT 95
== END 2023-10-03 13:20 | disposition home or self-care (01) ==
LOC: ANHED 12:55 → ANHSURGERY 13:05 → ANH2MED 22:08
PROVIDERS: Admitting Provider Surgery; Emergency Provider Emergency Medicine; PCP Physician Assistant; Visit Provider Surgery
PROC: 0DTJ4ZZ Resection of Appendix, Percutaneous Endoscopic Approach (ICD-10-PCS; CPT 44970; principal; 2023-10-01 15:00)
DX: K35.30 Acute appendicitis with localized peritonitis, without perforation or gangrene (principal); I10 Essential (primary) hypertension; E03.9 Hypothyroidism, unspecified; K76.0 Fatty (change of) liver, not elsewhere classified; E27.8 Other specified disorders of adrenal gland; E66.01 Morbid (severe) obesity due to excess calories; Z68.41 Body mass index [BMI] 40.0-44.9, adult
CPT/HCPCS: 44970; 36415; 74177; 80048; 80053; 81001; 83690; 85025; 88304; 96365; 99285; A9270; G0378; J0696; J1100; J1170; J1335; J1650; J1836; J2250; J2270; J2405; J2704; J3010; J7030; J7120; Q9967

== ENCOUNTER 2023-10-17 14:38 | Outpatient (CLI) | payer OTHER, SELFPAY ==
--- NOTE | ~2023-10-17 | MR_ITS ---
EXAMINATION: MR abdomen wo/w con DATE: 10/17/2023 15:49 INDICATION: Nodule of adrenal cortex. TECHNIQUE: Magnetic resonance imaging (MRI) of the abdomen was performed without and with 20 mL Multi [place] intravenous contrast. COMPARISON: CT abdomen and pelvis 10/01/2023 FINDINGS: There is diffuse hepatic steatosis. The gallbladder is contracted. The spleen and pancreas are normal . There is a 2.0 cm mass in right adrenal gland containing microscopic fat, consistent with an adenom a. There is thickening of left adrenal gland, likely benign. Right kidney is normal. There is a 7 mm cyst in left kidney. There are no dilated loops of bowel. There are no pathologically enlarged lymph nodes. There is no free intraperitoneal fluid. IMPRESSION: 1. 2.0 cm right adrenal adenoma. Reviewed, dictated and finalized at location A.
== END 2023-10-17 14:39 | disposition home or self-care (01) ==
PROVIDERS: PCP Physician Assistant; Visit Provider Physician Assistant
DX: E27.8 Other specified disorders of adrenal gland (principal); D35.01 Benign neoplasm of right adrenal gland
CPT/HCPCS: 74183; A9577

== ENCOUNTER 2024-05-13 11:00 | Outpatient (RCR) | payer OTHER, SELFPAY ==
--- NOTE | 2024-04-18 16:56 | OPREHPOC ---
Outpatient Therapy Plan of Care This is a Multidisciplinary Plan of Care that may contain components documented by all disciplines (PT, OT, and ST.) PT Problem 1 PT Problem #1 Knowledge Deficit PT Goal 1 Goal / Goal Update [place] with HEP Target Visit 4 PT Goal 2 Goal / Goal Update Report no pain greater than 2/10 for 2 consecutive weeks Target Visit 6 PT Problem 2 PT Problem #2 Impaired Range of Motion PT Goal 1 Goal / Goal Update 1. Achieve terminal left knee extension 2. Improve left knee flexion ROM to 125+ degrees Target Visit 6 PT Goal 2 Goal / Goal Update 1. Patient will improve gayle hamstring 90/909 ROM to -25 degrees to reduce posterior knee capsule restriction Target Visit 6
--- NOTE | 2024-04-18 16:57 | PTOPEVAL1 ---
Assessment and note entered by Jose Finn, PT Evaluation Information Assessment Status Evaluation Diagnosis M17.0 [place] OA of knees ICD-10 Condition Codes (PT) Pain in right knee M25.561,Pain in left knee M25. 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 He is mostly getting pain on the left medial knee but right is starting to hurt as well. Denies locking. Feels some instability. Denies radicular symptoms. Pain at rest. Pain first thing in the morning. Reports that he has lost about 40 pounds in the past year. Assessment PT Clinical Summary Patient presents with signs and symptoms consistent with nee arthritis and patellar dyskinesia. Patient will benefit form skilled therapy to address kinesiological deficits in hip ROM and patellar stability for nursing home functional improvement. Plan of Care Interventions Gait Training,Hot Pack/Cold Pack,Manual Therapy, Neuro Re-education,Therapeutic Activities, Therapeutic Exercise PT Services Indicated Yes Treatment Frequency and 1-2x/week for 5 visits Duration These treatments will address the objective and functional deficits as defined above. The patient will be advanced safely and appropriately in order for the patient to progress towards his/her prior level of function. Additional exercises will be introduced and as well as a comprehensive home exercise program upon discharge, if needed, ?to ensure carryover of functional gains achieved in the clinic. This treatment plan has been reviewed and agreement upon by the patient.
--- NOTE | 2024-05-02 10:18 | PCPTNOTE ---
Patient Cancelled this date secondary to weather conditions.
--- NOTE | 2024-05-13 11:47 | OPREHPOC ---
Outpatient Therapy Plan of Care This is a Multidisciplinary Plan of Care that may contain components documented by all disciplines (PT, OT, and ST.) PT Problem 1 PT Problem #1 Knowledge Deficit PT Goal 1 Goal / Goal Update [place] with HEP Target Visit 4 Progress Met PT Goal 2 Goal / Goal Update Report no pain greater than 2/10 for 2 consecutive weeks Target Visit 6 Progress Met PT Problem 2 PT Problem #2 Impaired Range of Motion PT Goal 1 Goal / Goal Update 1. Achieve terminal left knee extension 2. Improve left knee flexion ROM to 125+ degrees Target Visit 6 Progress Partially Met PT Goal 2 Goal / Goal Update 1. Patient will improve gayle hamstring 90/909 ROM to -25 degrees to reduce posterior knee capsule restriction Target Visit 6 Progress Met
--- NOTE | 2024-05-13 11:47 | PTOPDC ---
Assessment and note entered by Jose Finn, PT Evaluation Information Assessment Status Discharge Diagnosis M17.0 [place] OA of knees ICD-10 Condition Codes (PT) Pain in right knee M25.561,Pain in left knee M25. 562 Onset 2 years ago Subjective Information Reports that overall he is doing a lot better. Pain is controlled and feels he is able to do majority of things that he needs to. Feels comfortable with discharge to [facility] at this time. Reported Pain Level Pain Score 0: Self Report Assessment PT Clinical Summary Patient met all goals for therapy and is suitable for discharge to [facility] At this time. Compliant with [facility] Plan of Care PT Services Indicated Yes
== END 2024-05-13 13:34 | disposition home or self-care (01) ==
LOC: ANHGOSHPT 11:00
PROVIDERS: PCP Physician Assistant; Visit Provider Orthopaedic Surgery
DX: M17.0 Bilateral primary osteoarthritis of knee (principal)
CPT/HCPCS: 97110; 97140; 97161; 97530